=== PATIENT | female | born 1975 | race Caucasian/White ===

== ENCOUNTER 2019-03-07 08:00 | Outpatient (CLI) | payer BC | END 2019-03-07 23:59 | disposition home or self-care (01) | LOC: LAB.R 08:00 | PROVIDERS: ATTEND Nurse Practitioner Family | DX: J02.9 Acute pharyngitis, unspecified (principal) | CPT/HCPCS: 87070; 87077 ==

== ENCOUNTER 2019-10-11 11:16 | Outpatient (CLI) | payer BC ==
--- NOTE | 2019-10-15 10:34 | Mammography Report ---
BILATERAL DIGITAL SCREENING MAMMOGRAM 3D/2D: 10/11/2019 CLINICAL: Routine screening. Comparison is made to exam dated: 03/17/2018 mammogram - [facility]. The tissue of both breasts i s heterogeneously dense. This may lower the sensitivity of mammography. There is a possible developing 0.5 cm irregular equal density focal asymmetry in the right breast at 4 o'clock posterior depth. This is more prominent. No other significant masses, calcifications, or other findings are seen in either breast. IMPRESSION: INCOMPLETE: NEEDS ADDITIONAL IMAGING EVALUATION The possible developing 0.5 cm irregular equal density focal asymmetry in the right breast is indeter minate. Additional views with possible ultrasound are recommended. This exam was interpreted at Station ID: [id number]. NOTE: For mammograms, a report in lay terms will be sent to the patient. Approximately 15% of breast malignancies will not be visualized mammographically. In the management of a palpable breast mass, a negative mammogram must not discourage biopsy of a clinically suspicious lesion. Electronically Signed By: Camron Rosas M.D. aty/:10/12/2019 12:40:48 ACR BI-RADS Category 0: Incomplete 3340F PARENCHYMAL PATTERN: (D) - The breast(s) demonstrate(s) heterogeneously dense fibroglandular parbimal polo. BI-RADS CATEGORY: (0) - 0 Mammo and [place] [id number] Immediate follow-up LATERALITY: (R)
== END 2019-10-11 11:17 | disposition home or self-care (01) ==
LOC: DI 11:16
DX: Z12.31 Encounter for screening mammogram for malignant neoplasm of breast (principal); R92.8 Other abnormal and inconclusive findings on diagnostic imaging of breast
CPT/HCPCS: 77063; 77067

== ENCOUNTER 2019-11-21 05:55 | Outpatient (CLI) | payer BC ==
[2019-11-21 11:58] LABS: HGB - HEMOGLOBIN 14.3 g/dL (12.0-16.0); MEAN CORPUSCULAR HEMOGLOBIN 30.4 pg (27.0-31.0); MEAN CORPUSCULAR HGB CONC 32.9 g/dL (32.0-36.0); MEAN CORPUSCULAR VOLUME 92.4 fL (81.0-99.0); MEAN PLATELET VOLUME 11.4 fL (7.9-10.8); RED BLOOD COUNT 4.71 10^6/uL (4.20-5.40); RED CELL DISTRIBUTION WIDTH 12.4 % (12.0-15.0); WHITE BLOOD COUNT 9.1 x10^3/uL (4.8-10.8)
== END 2019-11-21 23:59 | disposition home or self-care (01) ==
LOC: LAB.WCP 05:55
PROVIDERS: ATTEND Physician Assistant Medical
DX: M79.10 Myalgia, unspecified site (principal)
CPT/HCPCS: 36415; 85027; 85651; 86140

== ENCOUNTER 2019-11-22 09:47 | Outpatient (CLI) | payer BC ==
--- NOTE | 2019-11-23 16:46 | Ultrasound Report ---
LIMITED ULTRASOUND OF RIGHT BREAST: 11/22/2019 CLINICAL: Patient returns today to evaluate a focal asymmetry in the right breast. Comparison is made to exams dated: 11/22/2019 mammogram, 10/11/2019 mammogram, 10/11/2019 mammogram - [facility], and 03/17/2018 mammogram - [facility]. Color flow and real-time ultrasound of the right breast were performed. Fortune scale images of the bob l-time examination were reviewed. There is a benign 0.9 cm x 0.6 cm x 0.3 cm oval cyst in the right breast at 3 o'clock posterior depth 5 cm from the nipple. This oval cyst is anechoic with a well-defined boundary and posterior acousti c enhancement. This correlates with mammography findings. Color flow imaging demonstrates that ther e is no vascularity present. IMPRESSION: BENIGN There is no sonographic evidence of malignancy. Subcentimeter simple cyst corresponding to the focal asymmetry is benign. A 1 year screening mammogram is recommended. Exam results conveyed to the patient. This exam was interpreted at Station ID: [id number]. Electronically Signed By: Rafael Smalls M.D. slc/:11/22/2019 12:38:45 Ultrasound BI-RADS: 2 Benign BI-RADS CATEGORY: (2) - 2 RECOMMENDATION: (ANNUAL) - Recommend routine annual screening mammography. [id number] 1 year screening LATERALITY: (B)
--- NOTE | 2019-11-23 16:46 | Mammography Report ---
UNILATERAL RIGHT DIGITAL DIAGNOSTIC MAMMOGRAM 3D/2D: 11/22/2019 CLINICAL: Short term follow up of the right breast. Additional evaluation requested from prior study. Comparison is made to exams dated: 10/11/2019 mammogram, 10/11/2019 mammogram - [facility], and 03/17/2018 mammogram - [facility]. The tissue of right breast is heterogeneously dense . This may lower the sensitivity of mammography. There is a 0.5 cm irregular equal density focal asymmetry in the right breast at 4 o'clock posterior depth. This is less prominent. No other significant masses or calcifications are seen in the breast. IMPRESSION: INCOMPLETE: NEEDS ADDITIONAL IMAGING EVALUATION The 0.5 cm irregular equal density focal asymmetry in the right breast is indeterminate. A targeted ultrasound is recommended and will immediately follow. This exam was interpreted at Station ID: [id number]. NOTE: For mammograms, a report in lay terms will be sent to the patient. Approximately 15% of breast malignancies will not be visualized mammographically. In the management of a palpable breast mass, a negative mammogram must not discourage biopsy of a clinically suspicious lesion. Electronically Signed By: Rafael Smalls M.D. slc/:11/22/2019 12:39:07 ACR BI-RADS Category 0: Incomplete 3340F PARENCHYMAL PATTERN: (D) - The breast(s) demonstrate(s) heterogeneously dense fibroglandular chelsey polo. BI-RADS CATEGORY: (0) - 0 Ultrasound [id number] Immediate follow-up LATERALITY: (B)
== END 2019-11-22 09:48 | disposition home or self-care (01) ==
LOC: DI 09:47
PROVIDERS: ATTEND Physician Assistant Medical
DX: R92.8 Other abnormal and inconclusive findings on diagnostic imaging of breast (principal); N60.01 Solitary cyst of right breast
CPT/HCPCS: 76642

== ENCOUNTER 2020-07-16 10:24 | Outpatient (CLI) | payer BC ==
--- NOTE | 2020-07-17 13:29 | Ultrasound Report ---
LIMITED ULTRASOUND OF RIGHT BREAST AND AXILLA: 07/16/2020 CLINICAL: Palpable right axilla lump. Comparison is made to exams dated: 07/16/2020 mammogram, 11/22/2019 ultrasound, 11/22/2019 mammogram, mammogram, 10/11/2019 mammogram - [facility], and 03/17/2018 mammogram - [facility]. Color flow and real-time ultrasound of the right breast axilla were performed. Fortune scale images of the real-time examination were reviewed. No significant abnormalities were seen sonographically in the right axilla. IMPRESSION: NEGATIVE There is no sonographic evidence of malignancy. There is no abnormality seen in the right axilla to correspond with the palpable abnormality in the r ight axilla, however, clinical correlation is recommended. A 1 year screening mammogram is recommended. This exam was interpreted at Station ID: [id number]. Electronically Signed By: Sebastien beltrán/naila:07/16/2020 12:42:09 Ultrasound BI-RADS: 1 Negative BI-RADS CATEGORY: (1) - 1 RECOMMENDATION: (ANNUAL) - Recommend routine annual screening mammography. [id number] 1 year screening LATERALITY: (B)
--- NOTE | 2020-07-17 13:29 | Mammography Report ---
BILATERAL DIGITAL DIAGNOSTIC MAMMOGRAM 3D/2D: 07/16/2020 CLINICAL: Palpable right axilla lump. Comparison is made to exams dated: 11/22/2019 ultrasound, 11/22/2019 mammogram, 10/11/2019 mammogram, mammogram - [facility], and 03/17/2018 mammogram - [facility]. The tiss ue of both breasts is heterogeneously dense. This may lower the sensitivity of mammography. There is a stable benign global asymmetry in the right breast. No significant masses, calcifications, or other findings are seen in either breast. IMPRESSION: INCOMPLETE: NEEDS ADDITIONAL IMAGING EVALUATION There is no abnormality seen in the right axilla to correspond with the palpable abnormality in the r ight axilla, however, ultrasound is recommended. This exam was interpreted at Station ID: [id number]. NOTE: For mammograms, a report in lay terms will be sent to the patient. Approximately 15% of breast malignancies will not be visualized mammographically. In the management of a palpable breast mass, a negative mammogram must not discourage biopsy of a clinically suspicious lesion. Electronically Signed By: Sebastien beltrán/naila:07/16/2020 12:40:32 ACR BI-RADS Category 0: Incomplete 3340F PARENCHYMAL PATTERN: (D) - The breast(s) demonstrate(s) heterogeneously dense fibroglandular parbimal polo. BI-RADS CATEGORY: (0) - 0 Ultrasound [id number] Immediate follow-up LATERALITY: (R)
== END 2020-07-16 10:25 | disposition home or self-care (01) ==
LOC: DI 10:24
PROVIDERS: ATTEND Obstetrics & Gynecology
DX: R59.0 Localized enlarged lymph nodes (principal); R92.8 Other abnormal and inconclusive findings on diagnostic imaging of breast

== ENCOUNTER 2020-11-21 08:00 | Outpatient (CLI) | payer BC ==
[2020-11-21 18:08] LABS: BASOPHILS # (AUTO) 0.1 10^3/uL (0.0-0.1); BASOPHILS % (AUTO) 0.7 %; EOSINOPHILS # (AUTO) 0.2 10^3/uL (0.0-0.7); EOSINOPHILS % (AUTO) 2.3 %; HCT - HEMATOCRIT 45.6 % (37.0-47.0); HGB - HEMOGLOBIN 14.6 g/dL (12.0-16.0); LYMPHOCYTES # (AUTO) 2.2 10^3/uL (1.5-3.5); LYMPHOCYTES % (AUTO) 25.6 %; MEAN CORPUSCULAR HEMOGLOBIN 30.3 pg (27.0-31.0); MEAN CORPUSCULAR VOLUME 94.6 fL (81.0-99.0); MEAN PLATELET VOLUME 11.3 fL (7.9-10.8); MONOCYTES # (AUTO) 0.6 10^3/uL (0.0-1.0); MONOCYTES % (AUTO) 6.9 %; NEUTROPHILS # (AUTO) 5.4 10^3/uL (1.5-6.6); PLT - PLATELET COUNT 319 10^3/uL (130-450); RED BLOOD COUNT 4.82 10^6/uL (4.20-5.40); RED CELL DISTRIBUTION WIDTH 13.2 % (12.0-15.0); WHITE BLOOD COUNT 8.4 x10^3/uL (4.8-10.8)
[2020-11-21 18:50] LABS: ALBUMIN 4.9 g/dL (3.2-5.5); ALBUMIN/GLOBULIN RATIO 1.8 (1.0-2.2); BILIRUBIN,TOTAL 0.4 mg/dL (0.2-1.0); CALCIUM 10.3 mg/dL (8.5-10.3); CREATININE 0.9 mg/dL (0.4-1.0); POTASSIUM 4.5 mmol/L (3.5-5.0); TOTAL PROTEIN 7.7 g/dL (6.7-8.2)
[2020-11-21 18:52] LABS: THYROID STIMULATING HORMONE 1.31 uIU/mL (0.34-5.60)
== END 2020-11-21 08:01 | disposition home or self-care (01) ==
LOC: LAB.WCP 08:00
PROVIDERS: ATTEND Physician Assistant Medical
DX: Z00.00 Encounter for general adult medical examination without abnormal findings (principal); B35.1 Tinea unguium
CPT/HCPCS: 36415; 80053; 84443; 85025

== ENCOUNTER 2023-09-22 08:37 | Outpatient (CLI) | payer BC ==
--- NOTE | 2023-09-23 10:54 | Mammography Report ---
BILATERAL DIGITAL SCREENING MAMMOGRAM 3D/2D: 09/22/2023 CLINICAL: Routine screening. Comparison is made to exams dated: 07/16/2020 ultrasound, 07/16/2020 mammogram, 11/22/2019 ultrasound, mammogram, 10/11/2019 mammogram, and 03/17/2018 mammogram - [facility]. There are scattered areas of fibroglandular density in both breasts (category b / 25%-50% glandular t issue). There is an irregular global asymmetry in the right breast at 11 o'clock posterior depth. No other significant masses, calcifications, or other findings are seen in either breast. IMPRESSION: INCOMPLETE: NEEDS ADDITIONAL IMAGING EVALUATION The irregular global asymmetry in the right breast resembles fibroglandular tissue and is indetermina te. Additional views with possible ultrasound are recommended. Based on the Tyrer Cuzick model (a risk assessment model) the patient's lifetime risk is 6.9% and her 10 year risk is 1.2%. According to the ACR, ACS, and NCCN guidelines, an annual breast MRI exam paola g with mammogram is recommended if the patient's lifetime risk is 20% or greater. This exam was interpreted at Station ID: [id number]. NOTE: For mammograms, a report in lay terms will be sent to the patient. Approximately 15% of breast malignancies will not be visualized mammographically. In the management of a palpable breast mass, a negative mammogram must not discourage biopsy of a clinically suspicious lesion. Electronically Signed By: Camron Rosas M.D. aty/:09/22/2023 18:28:54 ACR BI-RADS Category 0: Incomplete 3340F PARENCHYMAL PATTERN: (A) - The breast(s) demonstrate(s) scattered fibroglandular densities. BI-RADS CATEGORY: (0) - 0 Mammo and [place] [id number] Immediate follow-up LATERALITY: (R)
== END 2023-09-22 08:38 | disposition home or self-care (01) ==
LOC: MERGE 08:37 → DI.N 08:37
DX: Z12.31 Encounter for screening mammogram for malignant neoplasm of breast (principal); R92.8 Other abnormal and inconclusive findings on diagnostic imaging of breast; R92.323 Mammographic fibroglandular density, bilateral breasts

== ENCOUNTER 2023-10-04 10:50 | Outpatient (CLI) | payer BC ==
--- NOTE | 2023-10-05 13:43 | Mammography Report ---
UNILATERAL RIGHT DIGITAL DIAGNOSTIC MAMMOGRAM 3D/2D WITH SPOT COMPRESSION: 10/04/2023 CLINICAL: Patient returns today to evaluate a global focal asymmetry in the right breast. Comparison is made to exams dated: 07/16/2020 mammogram, 11/22/2019 mammogram, 10/11/2019 mammogram, 09/21 mammogram, and 07/16/2020 mammogram - [facility]. The right breast is heterogeneously dense, which may obscure small masses (category c / 51-75% glandu lar tissue). There is a global focal asymmetry in the right breast upper outer quadrant at posterior depth. Retros pectively, this finding is not significantly changed since prior mammograms dating back to 2019. No o ther significant masses or calcifications are seen in the breast. IMPRESSION: INCOMPLETE: NEEDS ADDITIONAL IMAGING EVALUATION Right breast global focal asymmetry in the posterior upper outer quadrant, not significantly changed since 2019 suggestion of a benign etiology. An ultrasound is recommended for further evaluation and i s scheduled to immediately follow this examination. Based on the Tyrer Cuzick model (a risk assessment model) the patient's lifetime risk is 6.9% and her 10 year risk is 1.2%. According to the ACR, ACS, and NCCN guidelines, an annual breast MRI exam paola g with mammogram is recommended if the patient's lifetime risk is 20% or greater. This exam was interpreted at Station ID: [id number]. NOTE: For mammograms, a report in lay terms will be sent to the patient. Approximately 15% of breast malignancies will not be visualized mammographically. In the management of a palpable breast mass, a negative mammogram must not discourage biopsy of a clinically suspicious lesion. Electronically Signed By: Micaela Valladares M.D., Ph.D. eb/:10/04/2023 12:01:58 ACR BI-RADS Category 0: Incomplete 3340F PARENCHYMAL PATTERN: (D) - The breast(s) demonstrate(s) heterogeneously dense fibroglandular parkileyy ma. BI-RADS CATEGORY: (0) - 0 Ultrasound [id number] Immediate follow-up LATERALITY: (B)
--- NOTE | 2023-10-05 13:43 | Ultrasound Report ---
LIMITED ULTRASOUND OF RIGHT BREAST: 10/04/2023 CLINICAL: Patient returns today to evaluate an asymmetry in the right breast. Comparison is made to exams dated: 10/04/2023 mammogram, 09/22/2023 mammogram, 07/16/2020 ultrasound, 07/16 mammogram, 07/16/2020 ultrasound, and 07/16/2020 mammogram - [facility]. Color flow and real-time ultrasound of the right breast 9-12 o'clock region were performed. Fortune sca le images of the real-time examination were reviewed. No sonographic abnormality in the right breast upper outer quadrant corresponding to global focal asy mmetry. Incidental benign simple cysts are seen in the right breast at 10 o'clock, 6 and 7 cm from t he nipple. IMPRESSION: BENIGN Right breast global focal asymmetry in the posterior upper outer quadrant, not significantly changed since 2019 and without ultrasound correlate. Finding is benign. No mammographic or sonographic eviden ce of malignancy. A 1 year screening mammogram is recommended. Findings and recommendations were conveyed to the patient during today's evaluation. This exam was interpreted at Station ID: [id number]. Electronically Signed By: Micaela Valladares M.D., Ph.D. eb/:10/04/2023 12:07:34 Ultrasound BI-RADS: 2 Benign BI-RADS CATEGORY: (2) - 2 RECOMMENDATION: (ANNUAL) - Recommend routine annual screening mammography. [id number] 1 year screening LATERALITY: (B)
== END 2023-10-04 10:51 | disposition home or self-care (01) ==
LOC: DI 10:50
PROVIDERS: ATTEND Physician Assistant Medical
DX: R92.8 Other abnormal and inconclusive findings on diagnostic imaging of breast (principal); R92.331 Mammographic heterogeneous density, right breast